=== PATIENT | male | born 1975 | race Caucasian/White ===

== ENCOUNTER 2017-05-04 15:32 | Emergency (ER) | payer BC, OTHER ==
[~2017-05-04] VITALS: Ht 177.8 cm; Wt 89.4 kg
[2017-05-04 15:35] VITALS: BP 147/97; PULSE 78; TEMP 36.7; O2SAT 97; Ht 177.8 cm; Wt 89.4 kg
[2017-05-04] MEDS ORDERED: OMEG5CAP PO (15:44)
[2017-05-04] MEDS ORDERED: BUPRTAB51 PO (15:44)
[2017-05-04] MEDS ORDERED: GELATIN SPONGE 12-7MM ONE (15:45)
--- NOTE | 2017-05-04 16:01 | EMERGENCY ROOM VISIT NOTE ---
History First contact with patient: 15:40 Chief Complaint: LACERATION/CUT (SUT/DERMABOND) Stated Complaint: CUT L THUMB Nursing Triage Summary: Tip of left thumb with avulsion. Bleeding. History of Present Illness The patient is a 42 year old male who presents to the Emergency Room with complaints of a laceration to his left thumb. The patient was chopping onions approximate 1 hour prior to arrival when he cut the tip off. He denies any significant bleeding or pain. The patient is [id number]. The patient had a tetanus booster administered one month ago. Review of Systems 10 system review was performed and was negative except for pertinent positives and negatives as indicated in history of present illness Past Medical/Surgical History Medical Problems: (1) No significant past medical history Surgical Problems: (1) No history of previous surgery Family History Unremarkable Social History Smoking Status: Never Smoker Alcohol Use: occasionally Marital Status: single Housing Status: lives alone Occupation Status: employed Current/Historical Medications Scheduled Bupropion (Wellbutrin-Xl), 300 MG PO DAILY Blount-3 Fatty Acids (Fish Oil 1200 mg), 1,200 MG PO DAILY Physical Exam Vital Signs Date Time Temp Pulse Resp B/P (MAP) Pulse Ox O2 Delivery O2 Flow Rate FiO2 05/04/17 15:35 36.7 78 20 147/97 97 Room Air Physical Exam CONSTITUTIONAL: Healthy and well nourished. Alert and oriented X 3 with positive affect. She does not appear in any acute distress. HEENT: Normocephalic, atraumatic. Pupils equal, round and reactive. MUSCULOSKELETAL: Examination shows a small avulsion laceration of the tip of the thumb without involvement of the nail plate. Diameter of the avulsion is approximately 7 mm. No active bleeding noted. INTEGUMENTARY: No rash or other significant dermatologic conditions noted. NEUROLOGIC: No focal neurologic deficits noted. Left thumb tip is sensory intact. Medical Decision & Procedures Medications Administered Medications (Trade) Dose Ordered Sig/Jazmine Route Start Time Stop Time Status Last Admin Dose Admin Gelatin (Surgif[place]am Sponge 12-7MM (SMALL)) 1 ea STK-MED ONCE .ROUTE 05/04/17 15:45 05/04/17 15:46 DC 05/04/17 15:45 1 EA Procedure A Gelfoam pressure dressing was applied by mn ED Course Patient history and physical exam were performed. Nurse's notes were reviewed. Vital signs were reviewed showing an elevated blood pressure 147/97. The patient was encouraged to follow-up with his PCP for blood pressure recheck. A Gelfoam pressure dressing was applied to the patient's avulsion laceration. The patient was provided additional verbal and written wound care instructions. Return to the emergency department for any further wound concerns or signs of infection. Ibuprofen and Tylenol as needed for pain. The patient was happy with plan of care, voiced understanding of all discharge instructions, and denied any significant pain at the conclusion of my exam. Medical Decision Blood Pressure Screening Patient's blood pressure: Elevated blood pressure Blood pressure disposition: Referred to PCP Impression Primary Impression: Laceration of left thumb Departure Information Dispostion Home / Self-Care Forms HOME CARE DOCUMENTATION FORM, IMPORTANT VISIT INFORMATION Patient Instructions My [facility] Additional Instructions Keep dressing in place for 48 hrs, then remove. Soak foam in water until it falls off easily, then clean wound daily, cover with an antibiotic ointment and keep covered until it heals. Return for any signs of infection (increasing redness, swelling, drainage). Ice and elevate for swelling and pain. Ibuprofen 600 mg and Tylenol 1000 mg every 6 hrs as needed for pain. Problem Qualifiers Primary Impression: Laceration of left thumb Encounter type: initial encounter Damage to nail status: without damage Foreign body presence: without foreign body Qualified Codes: S61.012A - Laceration without foreign body of left thumb without damage to nail, initial encounter
== END 2017-05-04 15:59 | disposition home or self-care (01) ==
LOC: C.EDB 15:34 → C.EDD 15:59
DX: S61.012A Laceration without foreign body of left thumb without damage to nail, initial encounter (principal); W26.0XXA Contact with knife, initial encounter